=== PATIENT | female | born 1945 | race Caucasian/White ===

== ENCOUNTER → 2024-02-08 11:04 | Outpatient (REF) | payer MEDICARE, OTHER, SELFPAY ==
[2024-02-08 12:41] LABS: % Basophils 1.1 % (0-2); % Eosinophils 1.4 % (0-6); % Immature Granulocytes 0.2 % (0-0.5); % Lymphocytes 30.7 % (20.5-51.1); % Monocytes 6.8 % (1.7-9.3); % Neutrophils 59.8 % (42.2-75.2); Absolute Basophils 0.1 10^3/uL (0-0.2); Absolute Eosinophils 0.1 10^3/uL (0-0.7); Absolute Monocytes 0.7 10^3/uL (0.1-0.6); Absolute Neutrophils 5.8 10^3/uL (1.4-6.5); Hematocrit 41.6 % (37.0-47.0); Hemoglobin 14.3 g/dL (12.0-16.0); Mean Corp Hgb Conc. 34.4 g/dL (33.0-37.0); Mean Corpuscular Hgb 30.6 pg (27.0-31.0); Mean Corpuscular Volume 89.1 fL (81.0-99.0); Mean Platelet Volume 10.1 fL (7.4-10.4); Nucleated Red Blood Cells % 0 %; Platelet Count 298 10^3/uL (130-400); Red Blood Cell Count 4.67 10^6/uL (4.20-5.40); Red Cell Dist. Width 12.3 % (11.5-14.5); White Blood Cell Count 9.8 10^3/uL (4.8-10.8)
[2024-02-08 13:17] LABS: ALT (SGPT) 20 U/L (0-35); AST (SGOT) 28 U/L (14-36); Albumin 4.7 g/dl (3.5-5.0); Alkaline Phosphatase 75 U/L (38-126); Blood Urea Nitrogen 13 mg/dl (7-17); Calcium 9.5 mg/dl (8.4-10.2); Carbon Dioxide 27 mmol/L (22-30); Chloride 96 mmol/L (98-107); Glucose 91 mg/dl (70-99); Potassium 4.8 mmol/L (3.5-5.1); Sodium 137 mmol/L (135-145); Total Bilirubin 0.6 mg/dl (0.2-1.3); Total Protein 7.3 g/dl (6.3-8.2); eGFR > 60.00
[2024-02-08 13:23] LABS: C-Reactive Protein < 5.00 mg/L (0.0-10.00)
[2024-02-08 13:54] LABS: TSH Reflex To Free T4 1.25 uIU/ml (0.47-4.68)
[2024-02-08 14:00] LABS: Erythrocyte Sed Rate 9 mm/hour (0-20)
[2024-02-08 23:30] LABS: IgA 169 mg/dl (70-400)
== END ==
LOC: REG 11:04
PROVIDERS: ATTENDING PHYSICIAN Physician Assistant; REFERRING PHYSICIAN Family Medicine
DX: R19.7 Diarrhea, unspecified (principal)
CPT/HCPCS: 36415; 80053; 82784; 83516; 84443; 85025; 85652; 86140; 86231

== ENCOUNTER → 2024-02-09 11:41 | Outpatient (REF) | payer MEDICARE, OTHER, SELFPAY ==
[2024-02-11 22:20] LABS: Fat, Fecal - Neutral Normal (Normal); Fat, Fecal - Split Normal (Normal)
== END ==
LOC: REG 11:41
PROVIDERS: ATTENDING PHYSICIAN Physician Assistant; FAMILY PHYSICIAN Family Medicine
DX: R19.7 Diarrhea, unspecified (principal)
CPT/HCPCS: 82653; 82705; 83993; 87045; 87046; 87324; 87328; 87329; 87427; 87449

== ENCOUNTER → 2024-03-22 10:44 | Outpatient (REF) | payer MEDICARE, OTHER, SELFPAY | LOC: MRI 3T 10:44 | PROVIDERS: ATTENDING PHYSICIAN Physician Assistant; FAMILY PHYSICIAN Family Medicine | DX: K86.2 Cyst of pancreas (principal) | CPT/HCPCS: 74183; A9575 ==

== ENCOUNTER 2024-06-25 06:19 | Day surgery (SDC) | payer MEDICARE, OTHER, SELFPAY | END 2024-06-25 12:38 | disposition home or self-care (01) | LOC: GI 06:19 | PROVIDERS: ATTENDING PHYSICIAN Internal Medicine Gastroenterology | DX: R10.11 Right upper quadrant pain (principal); R63.4 Abnormal weight loss; K44.9 Diaphragmatic hernia without obstruction or gangrene; K31.7 Polyp of stomach and duodenum; K22.89 Other specified disease of esophagus; K31.89 Other diseases of stomach and duodenum; K29.50 Unspecified chronic gastritis without bleeding; K20.90 Esophagitis, unspecified without bleeding | CPT/HCPCS: 43239; 88305; 88313 ==